=== PATIENT | female | born 1960 | race Caucasian/White ===

== ENCOUNTER → 2025-04-17 10:29 | Outpatient (REF) | payer OTHER, SELFPAY | LOC: DHSLP 10:29 | PROVIDERS: ATTENDING PHYSICIAN Internal Medicine; FAMILY PHYSICIAN Nurse Practitioner Adult Health | DX: G47.33 Obstructive sleep apnea (adult) (pediatric) (principal); R09.02 Hypoxemia | CPT/HCPCS: 95800 ==

== ENCOUNTER → 2025-05-23 13:38 | Outpatient (REF) | payer OTHER, SELFPAY | LOC: DHSLP 13:38 | PROVIDERS: ATTENDING PHYSICIAN Internal Medicine; FAMILY PHYSICIAN Nurse Practitioner Adult Health | DX: G47.33 Obstructive sleep apnea (adult) (pediatric) (principal); R09.02 Hypoxemia | CPT/HCPCS: 95800 ==